=== PATIENT | female | born 1950 | race Caucasian/White ===

== ENCOUNTER 2024-05-05 06:06 | Day surgery (SDC) | payer MEDICARE, OTHER, SELFPAY ==
[2024-04-15 14:17] VITALS: BMI 25.8
[2024-04-15 15:03] LABS: Hemoglobin 12.1 g/dL (12.0-16.0); Mean Corp Hgb Conc. 35.6 g/dL (33.0-37.0); Mean Corpuscular Hgb 29.9 pg (27.0-31.0); Platelet Count 255 10^3/uL (130-400); Red Blood Cell Count 4.05 10^6/uL (4.20-5.40); Red Cell Dist. Width 13.1 % (11.5-14.5); White Blood Cell Count 9.2 10^3/uL (4.8-10.8)
[2024-04-15 15:23] LABS: ALT (SGPT) 18 U/L (0-35); AST (SGOT) 31 U/L (14-36); Alkaline Phosphatase 93 U/L (38-126); Blood Urea Nitrogen 30 mg/dl (7-17); Calcium 10.4 mg/dl (8.4-10.2); Carbon Dioxide 29 mmol/L (22-30); Chloride 91 mmol/L (98-107); Estimated Creatinine Clearance 46 ml/min; Glucose 91 mg/dl (70-99); Potassium 5.2 mmol/L (3.5-5.1); Sodium 133 mmol/L (135-145); Total Bilirubin 0.6 mg/dl (0.2-1.3); Total Protein 7.5 g/dl (6.3-8.2); eGFR > 60.00
[2024-04-16 08:48] LABS: Glycohemoglobin (HgbA1c) 5.4 % (4.0-5.6)
--- NOTE | 2024-04-22 10:26 | VNURNOTE ---
Patient is scheduled for an elective R TKR on 05/05/[address] Campbell- she is a same day patient. Spoke with patient prior to surgery. Introduced role of [facility] liaison.
Patient reports she lives alone with a cat in a 1 story house. [address].
She currently functions independently. She has a cane and rolling walker.
She has never had VN.
PCP is Radha Alejandre
Pharm [facility]
Discussed orthopedic program and post surgical plans.
Reviewed that he will have VN services initially and will then start outpatient PT.
Patient selects VN for home care needs and will then go to [facility] for outpatient PT.
Patient is in agreement with plan and states that friend will be available initially to help post-op
Referral placed in [facility].
Plan: [facility] joint protocol then outpt PT at [facility] M[facility]
[2024-05-05] VITALS (25 sets, daily range): BP systolic 78–212; BP diastolic 47–117; PULSE 83–112; O2SAT 98; BMI 25.8
[2024-05-05] MEDS: TYLENOL 650 MG PO ×3 (06:32→17:01)
[2024-05-05] MEDS: NORMOSOL-R/PLASMALYTE-A 1000 IV (06:45)
--- NOTE | 2024-05-05 08:53 | W.DS.TRANS ---
DC Summary - [employer]
-
Discharge Instructions:
Sleep Apnea Risk Low
Discharge Diagnosis/Procedures s/p Right total knee replacement
Diet No restrictions
Activity With assistance
Driving Restrictions Not until seen by your Dr
Bathing Restrictions OK to Shower
Instructions: Total Knee Replacement (DC)
Stand-Alone Forms:
Changes to Home Medications: No
Discharge Medications:
DC Medications w/original date entered in [employer]
Curcumin 400 mg PO DAILY 04/29/24
[place] 3 560 mg PO DAILY 04/29/24
Probiotic 1,560 mg PO DAILY 04/29/24
cholecalciferol (vitamin D3) 125 mcg (5,000 unit) tablet (Vitamin D3) 125 mcg PO DAILY 04/29/24
coQ10 (ubiquinol) 100 mg capsule 100 mg PO DAILY 04/29/24
cyclobenzaprine 5 mg tablet 5 mg PO HS PRN spasms 04/29/24
losartan 100 mg tablet 100 mg PO DAILY 04/29/24
melatonin 5 mg tablet 5 mg PO DAILY 04/29/24
metoprolol succinate 50 mg tablet,extended release 24 hr 50 mg PO DAILY 04/29/24
mupirocin 2 % topical ointment 1 applic topical BID 04/29/24
red yeast rice 600 mg tablet 1,200 mg PO DAILY 04/29/24
torsemide 5 mg tablet 25 mg PO DAILY 04/29/24
vitamin E 50 mg PO DAILY 04/29/24
Home Medication Changes
Pending Results: No
[2024-05-05] MEDS: CYKLOKAPRON 1300 MG PO ×2 (12:31→20:31)
[2024-05-05] MEDS: ROXICODONE 5 MG PO (15:19)
--- NOTE | 2024-05-05 15:36 | W.PN.UPDATE ---
Update Note
Progress Note Update
The patient was initially intended to go how same-day; however, due to ongoing incisional bleeding and orthostatic hypotension (in setting of baseline liable HTN), will admit overnight.
R knee OA s/p R TKA w/ Dr Robbins 05/05/24
DVT prophylaxis - ASA 81 mg BID on POD 2 (nothing tonight or tomorrow d/t ongoing incisional bleeding) and b/l venous foot pumps
Incisional bleeding - TXA BID and continuous dressing changes prn
- Assess H&H in AM
Orthostatic hypotension w/ baseline liable HTN - monitor orthostatics q8h
- Anti-hypertensives w/ hold BP parameters
- Midodrine
Atrial tachycardia - monitor on tele
- BB w/ hold parameters
Fibromyalgia - monitor pain
Hypercholesterolemia
Mild LVH
DDD
Melanoma, shoulder, s/p surgical removal
SCC
Anxiety
Lyme disease
Prediabetes
Mild hyponatremia and hyperkalemia
[2024-05-05] MEDS: NSS 1000 IV (16:58)
[2024-05-05] MEDS: COZAAR PO (17:00)
[2024-05-05] MEDS: ANCEF 5 IV ×2 (17:00→23:30)
[2024-05-05] MEDS: VITAMIN D3 (cholecalciferol) PO (17:00)
[2024-05-05] MEDS: FLUSH (NSS) 1 FLUSH IV (17:01)
--- NOTE | 2024-05-05 17:16 | W.PN.UPDATE ---
Update Note
Progress Note Update
Patient s/p right TKR. Was scheduled as an outpatient but had orthostatic hypotension and was admitted. VSS in bed. Pulm: nonlabored. CV: regular. RLE: has saturated dressing 3 times. No active bleeders when bandage off. Extra shanna
placed. Able to fully extend. NVI distally. Calf soft. Post op xrays as expected. Will watch BP. Will hold ASA with oozing. Dressing reinforced. Will order additional oral TXA. Plan for discharge home tomorrow if stable.
[2024-05-05] MEDS: TYLENOL PO (20:27)
[2024-05-05] MEDS: ROXICODONE 7.5 MG PO (20:28)
[2024-05-05] MEDS: ZOFRAN 4 MG IV (20:28)
[2024-05-05] MEDS: DECADRON 4 MG PO (20:29)
[2024-05-05] MEDS: SENOKOT 17.2 MG PO (20:30)
[2024-05-05] MEDS: BACTROBAN 2% OINTMENT 1 APPLIC NASAL (20:30)
[2024-05-05] MEDS: COLACE 100 MG PO (20:30)
[2024-05-05] MEDS: MELATONIN 5 MG PO (22:46)
[2024-05-06] MEDS: TYLENOL PO ×3 (00:30→08:19)
[2024-05-06 03:06] VITALS: BP 149/95
[2024-05-06 06:18] LABS: Hematocrit 24.2 % (37.0-47.0); Hemoglobin 8.8 g/dL (12.0-16.0)
[2024-05-06 07:00] VITALS: BP 167/93
--- NOTE | 2024-05-06 07:35 | W.PN.ORTHO ---
Today's Communication / Plan
-
PT and Case management to see
Assessment
.
Distal Motor Intact: Yes
Dressing:
Dressing changed
Assessment:
Admitted for orthostatic hypotension following RTKR. OOB with PT today. Drainage improved with TXA. Plan for discharge home today if BP allows. Patient would like to discuss Home PT/Visistng nurse for 2-3 weeks to start.
Plan
.
Surgery / Date: 05/05/2024 RTKR [place]
DVT Prophylaxis: Aspirin (2 baby aspirin to start on Thursday)
Activity:
Out of bed.
PT/OT
Discharge Plan: Home w/ VN
Discharge Information:
Patient doing well this AM. Discharge home today if BP allows with visiting nurse and home PT
Subjective
.
.:
Patient resting comfortably. Complains of stiffness and a little nausea.
Vital Signs and Labs
.
Vital Signs and Labs:
Lab Results
05/06/24 04:29
04/15/24 14:23
Temp Pulse Resp BP Pulse Ox
98.3 F 90 18 149/95 96
05/06/24 03:06 05/06/24 03:06 05/06/24 03:06 05/06/24 03:06 05/06/24 03:06
Non-invasive Hgb result: 11.5
Physical Exam
-
Pulm: nonlabored
CV: regular
Abd: benign
Ext: RLE: Dressing with contained bloody drainage. Improved. Calf soft. Able to fully extend. NVI distally
[2024-05-06] MEDS: CYKLOKAPRON 1300 MG PO (07:58)
[2024-05-06] MEDS: DEMADEX 25 MG PO (07:58)
[2024-05-06] MEDS: BACTROBAN 2% OINTMENT 1 APPLIC NASAL (07:58)
[2024-05-06 08:00] VITALS: BP 131/87; BP 151/99; BP 167/93; PULSE 105; PULSE 117; PULSE 83
[2024-05-06] MEDS: COLACE 100 MG PO (08:00)
[2024-05-06] MEDS: DECADRON 4 MG PO (08:00)
[2024-05-06] MEDS: TOPROL XL 50 MG PO (08:00)
[2024-05-06] MEDS: COZAAR 100 MG PO (08:00)
[2024-05-06] MEDS: SENOKOT 17.2 MG PO (08:01)
[2024-05-06] MEDS: VITAMIN D3 (cholecalciferol) 125 MCG PO (08:01)
[2024-05-06] MEDS: ROXICODONE 7.5 MG PO (08:18)
--- NOTE | 2024-05-06 09:59 | W.PN.ORTHO ---
Today's Communication / Plan
-
D/c today if remaining clinically stable. Home PT/VN services preferable upon d/c.
Assessment
.
Distal Motor Intact: Yes
Dressing:
Clean, dry and intact after dressing change this AM.
Assessment:
The patient was initially intended to go how same-day; however, due to ongoing incisional bleeding and orthostatic hypotension (in setting of baseline liable HTN), she was admitted overnight.
R knee OA s/p R TKA w/ Dr Robbins 05/05/24
DVT prophylaxis - ASA 81 mg BID starting Thursday, 05/08 (d/t previous incisional bleeding) and b/l venous foot pumps
Incisional bleeding - TXA BID and continuous dressing changes prn
- Additional shanna placed - dressing remaining C/D/I while working w/ PT
Orthostatic hypotension w/ baseline liable HTN - orthostatic VS POD 1 stable w/ pt remaining asymptomatic
- Continue anti-hypertensives w/ hold BP parameters while on Oxycodone
- Midodrine not indicated thankfully
Atrial tachycardia - maintaining NSR on tele
- BB w/ hold parameters
Fibromyalgia - Pain tolerable by POD 1
Hypercholesterolemia
Mild LVH
DDD
Melanoma, shoulder, s/p surgical removal
SCC
Anxiety
Lyme disease
Prediabetes
Mild hyponatremia and hyperkalemia
Plan
.
Surgery / Date: R TKA w/ Dr Robbins 05/05/24
DVT Prophylaxis: Aspirin (81 mg BID starting 05/08)
Activity:
Out of bed.
PT/OT
Discharge Plan: Home w/ VN
Subjective
.
.:
Patient resting comfortably in bed this AM.
BP readings improving overnight w/o need for Midodrine.
Incisional bleeding lessening w/ additional TXA.
Eager for potential d/c today.
Vital Signs and Labs
.
Vital Signs and Labs:
Lab Results
05/06/24 04:29
04/15/24 14:23
Temp Pulse Resp BP Pulse Ox
98.5 F 83 16 167/93 95
05/06/24 07:00 05/06/24 08:00 05/06/24 07:00 05/06/24 08:00 05/06/24 07:00
Non-invasive Hgb result: 11.5
Physical Exam
-
HEENT: No pallor, cyanosis, or jaundice. Throat clear.
NECK: Supple. No JVD.
RESPIRATORY: Lungs clear to auscultation.
CVS: S1, S2 normal. RRR.�
ABDOMEN: Soft, non-tender. No distension.
EXTREMITIES: Expected post-surgical R knee edema. Strength equal, no calf pain with palpation/dorsiflexion. Calves soft.
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 No focal deficits. 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
[2024-05-06 10:19] VITALS: BP 112/75; BP 116/65; BP 150/84; PULSE 105; PULSE 88; O2SAT 96
--- NOTE | 2024-05-06 10:32 | CM ---
CM met with pt a bedside
Pt reports she lives alone in a ranch style home; 3 [address] to enter
Independent, active
DME - single point cane, rolling walker, raised toilet seat, toilet rails, shower rails
SNF/HH - no past hx
Has ride home at d/c
PCP - Radha Alejandre
Pharm - [facility]
Pts friend to stay with her at discharge for a few days per pt
Requesting Home VN/PT - no preference
[facility] Liaison aware
Plan - anticipate home with VNA
--- NOTE | 2024-05-06 10:36 | VNURNOTE ---
Chart reviewed, plan is for patient to be DC today. Met with patient at bedside. She confirms her friend will pick her up and stay with her overnight. Explained [facility] will call her ahead of time and plan to see her at home tomorrow. Brochure with
VN contact info provided. Patient agreeable to plan. Referral accepted in [facility].
--- NOTE | 2024-05-06 10:48 | W.DS.TRANS ---
DC Summary - [place]
-
Discharge Instructions:
Sleep Apnea Risk Low
Discharge Diagnosis/Procedures R knee OA s/p R TKA w/ Dr Robbins 05/05/24
Diet Regular
Activity As tolerated,With Walker
Driving Restrictions Not until seen by your Dr
Bathing Restrictions OK to Shower
Other Services VN,PT
Wound Care Dressing to be removed 1 week post-surgery.
[place] to be removed at 2 week follow-up with
surgeon's office.
Instructions: Total Knee Replacement (DC)
Stand-Alone Forms: Total Hip/Knee Replacement D/C
Changes to Home Medications: Yes
Discharge Medications:
DC Medications w/original date entered in [employer]
Curcumin 400 mg PO DAILY 04/29/24
[place] 3 560 mg PO DAILY 04/29/24
Probiotic 1,560 mg PO DAILY 04/29/24
cholecalciferol (vitamin D3) 125 mcg (5,000 unit) tablet (Vitamin D3) 125 mcg PO DAILY 04/29/24
coQ10 (ubiquinol) 100 mg capsule 100 mg PO DAILY 04/29/24
melatonin 5 mg tablet 5 mg PO DAILY 04/29/24
metoprolol succinate 50 mg tablet,extended release 24 hr 50 mg PO DAILY 04/29/24
mupirocin 2 % topical ointment 1 applic topical BID 04/29/24
red yeast rice 600 mg tablet 1,200 mg PO DAILY 04/29/24
vitamin E 50 mg PO DAILY 04/29/24
mupirocin 2 % topical ointment 1 applic topical BID 2 days #15 grams 05/05/24
acetaminophen 500 mg tablet (Tylenol Extra Strength) 1,000 mg (2 x 500 mg) PO Q6H #60 tabs 05/06/24
aspirin 81 mg chewable tablet 81 mg PO BID #60 tabs 05/06/24
cyclobenzaprine 5 mg tablet 5 mg PO HS PRN spasms #0 tabs 05/06/24
dexamethasone 4 mg tablet 4 mg PO Q12 Anti-inflammatory #7 tabs 05/06/24
docusate sodium 100 mg capsule 100 mg PO BID #30 caps 05/06/24
losartan 100 mg tablet 100 mg PO DAILY #0 tabs 05/06/24
metoprolol succinate 25 mg tablet,extended release 24 hr 25 mg PO QPM 05/06/24
ondansetron HCl 4 mg tablet 4 mg PO Q6H PRN nausea and vomiting #30 tabs 05/06/24
oxycodone 5 mg tablet 5 - 10 mg (1 - 2 x 5 mg) PO Q6H PRN moderate-severe pain #30 tabs 05/06/24
sennosides 8.6 mg tablet (Senna Laxative) 17.2 mg (2 x 8.6 mg) PO BID #30 tabs 05/06/24
torsemide 5 mg tablet 25 mg (5 x 5 mg) PO DAILY #0 tabs 05/06/24
Home Medication Changes
acetaminophen 500 mg tablet (Tylenol Extra Strength) 1,000 mg (2 x 500 mg) PO Q6H #60 tabs 05/06/24
aspirin 81 mg chewable tablet 81 mg PO BID #60 tabs 05/06/24
dexamethasone 4 mg tablet 4 mg PO Q12 Anti-inflammatory #7 tabs 05/06/24
docusate sodium 100 mg capsule 100 mg PO BID #30 caps 05/06/24
ondansetron HCl 4 mg tablet 4 mg PO Q6H PRN nausea and vomiting #30 tabs 05/06/24
oxycodone 5 mg tablet 5 - 10 mg (1 - 2 x 5 mg) PO Q6H PRN moderate-severe pain #30 tabs 05/06/24
sennosides 8.6 mg tablet (Senna Laxative) 17.2 mg (2 x 8.6 mg) PO BID #30 tabs 05/06/24
Pending Results: No
[2024-05-06] MEDS: TYLENOL 650 MG PO (11:43)
[2024-05-06 11:45] VITALS: BP 118/77
== END 2024-05-06 13:20 | disposition home or self-care (01) ==
LOC: SDS 06:06
PROVIDERS: Physician Assistant; ATTENDING PHYSICIAN Orthopaedic Surgery; FAMILY PHYSICIAN Internal Medicine; OTHER PHYSICIAN Internal Medicine Cardiovascular Disease
DX: M17.11 Unilateral primary osteoarthritis, right knee (principal); I10 Essential (primary) hypertension; I95.1 Orthostatic hypotension; I47.19 Other supraventricular tachycardia; L76.22 Postprocedural hemorrhage of skin and subcutaneous tissue following other procedure; Y83.1 Surgical operation with implant of artificial internal device as the cause of abnormal reaction of the patient, or of later complication, without mention of misadventure at the time of the procedure; D62 Acute posthemorrhagic anemia; M79.7 Fibromyalgia
CPT/HCPCS: 27447; 36415; 73560; 80053; 83036; 85014; 85018; 85027; 87070; 97110; 97116; 97162; 97166; 97530; 97535; C1713; C1776

== ENCOUNTER → 2024-07-27 12:54 | Outpatient (REF) | payer MEDICARE, OTHER, SELFPAY | LOC: RCS 12:54 | PROVIDERS: ATTENDING PHYSICIAN Internal Medicine Cardiovascular Disease; FAMILY PHYSICIAN Internal Medicine | DX: I35.1 Nonrheumatic aortic (valve) insufficiency (principal); I34.0 Nonrheumatic mitral (valve) insufficiency; I10 Essential (primary) hypertension; R42 Dizziness and giddiness | CPT/HCPCS: 93306 ==

== ENCOUNTER 2025-02-01 12:41 | Emergency (ER) | payer MEDICARE, OTHER, SELFPAY ==
[2025-02-01] VITALS (10 sets, daily range): BP systolic 164–214; BP diastolic 99–117
[2025-02-01 13:27] LABS: % Basophils 0.4 % (0-2); % Immature Granulocytes 0.1 % (0-0.5); % Lymphocytes 22.8 % (20.5-51.1); % Monocytes 8.5 % (1.7-9.3); % Neutrophils 67.2 % (42.2-75.2); Absolute Eosinophils 0.1 10^3/uL (0-0.7); Absolute Lymphocytes 1.7 10^3/uL (1.2-3.4); Absolute Monocytes 0.6 10^3/uL (0.1-0.6); Absolute Neutrophils 4.9 10^3/uL (1.4-6.5); Hemoglobin 11.7 g/dL (12.0-16.0); Mean Corp Hgb Conc. 35.5 g/dL (33.0-37.0); Mean Corpuscular Hgb 29.9 pg (27.0-31.0); Mean Corpuscular Volume 84.4 fL (81.0-99.0); Mean Platelet Volume 9.5 fL (7.4-10.4); Nucleated Red Blood Cells % 0 %; Platelet Count 256 10^3/uL (130-400); Red Blood Cell Count 3.91 10^6/uL (4.20-5.40); Red Cell Dist. Width 12.9 % (11.5-14.5); White Blood Cell Count 7.3 10^3/uL (4.8-10.8)
[2025-02-01 13:53] LABS: ALT (SGPT) 19 U/L (0-35); AST (SGOT) 24 U/L (14-36); Albumin 4.8 g/dl (3.5-5.0); Alkaline Phosphatase 101 U/L (38-126); Blood Urea Nitrogen 15 mg/dl (7-17); Calcium 9.3 mg/dl (8.4-10.2); Carbon Dioxide 25 mmol/L (22-30); Chloride 98 mmol/L (98-107); Glucose 103 mg/dl (70-99); Potassium 4.5 mmol/L (3.5-5.1); Sodium 128 mmol/L (135-145); Total Bilirubin 0.6 mg/dl (0.2-1.3); Total Protein 7.4 g/dl (6.3-8.2); eGFR > 60.00
[2025-02-01 14:01] LABS: Troponin I < 0.012 ng/ml
--- NOTE | 2025-02-01 17:39 | ED.GENMED ---
History of Present Illness
General
Chief Complaint: Blood Pressure Problem
Source: patient
Exam Limitations: none
Time Seen by Provider: 02/01/25 17:20
Nursing documentation reviewed up to this point in time: agreed with
History of Present Illness
History of Present Illness:
Note:
CHIEF COMPLAINT(S)
Lightheadedness
HISTORY OF PRESENT ILLNESS
The patient is a 74-year-old female with a past medical history of atrial tachycardia and hypertension, presenting with lightheadedness that occurred earlier today. The onset of symptoms was around 11:00 AM during a physical therapy session, leading
her therapist to measure her blood pressure and advise calling her physician. At the Emergency Department, she reports feeling lightheaded but denies any new changes in her usual symptoms. She has a history of a similar episode approximately eight
years ago that required overnight observation in a hospital. She mentions non-specified issues with her sleep recently, which she suspects might contribute to her current condition.
The patient reports taking diltiazem this morning for atrial tachycardia and losartan around noon for hypertension. She recalls being told to divide the doses but does not specify adherence.
CHRONIC MEDICAL CONDITIONS SIGNIFICANTLY AFFECTING CARE
Chronic conditions affecting care: atrial tachycardia, hypertension.
SOCIAL HISTORY
The patient denies current or past smoking, alcohol, or illicit drug use, including marijuana and cocaine. She reports a social history of occasional cigarette smoking when younger but none currently.
PHYSICAL EXAM
- General: No acute distress
- Vital Signs: Blood pressure 214/116 mmHg, afebrile
- Head, Eyes, Ears, Nose, and Throat: Normocephalic, atraumatic; exam otherwise unremarkable
- Cardiovascular: Normal S1 and S2 heart sounds, no extra heart sounds
- Lungs: Clear to auscultation bilaterally, no adventitious sounds noted
- Extremities: No edema, normal peripheral pulses
Nursing notes reviewed and vital signs reviewed.
DIFFERENTIAL DIAGNOSIS
The Differential Diagnosis includes, in no particular order and is not limited to:
- Hypertensive crisis
- Medication side effects
- Orthostatic hypotension
- Cardiac arrhythmia
- Electrolyte imbalance
- Dehydration
- Vasovagal syncope
- Anemia
- Vestibular dysfunction
- Hypoglycemia
CARE-UPDATE
02/01/25 - 20:10
Patient shows improvement in blood pressure and heart rate. Cleared for discharge. Mild chronic hyponatremia noted, requiring follow-up with primary care for re-evaluation. Increased metoprolol dosage to 50 mg nightly from previous 25 mg.
Disposition:
SUMMARY OF ENCOUNTER
The patient, a 74-year-old female with a past medical history of atrial tachycardia and hypertension, was seen in the emergency department due to an episode of lightheadedness that occurred during a physical therapy session. Her blood pressure was
noted to be elevated at 214/116 mmHg. She had experienced a similar episode eight years ago. Recent sleep disturbances and medication timing (diltiazem and losartan taken separately) might have contributed to the current situation. The management
involved evaluating her current condition, monitoring her vital signs, and adjusting her medication regimen. The decision was made to discharge her as her symptoms improved, and her blood pressure and heart rate showed stabilization. A follow-up
with her primary care physician was advised to address mild chronic hyponatremia and reassess hypertension management.
DISPOSITION
The patient was cleared for discharge after stabilization and improvement in her symptoms.
MEDICATION RECONCILIATION
Increased dosage of metoprolol to 50 mg nightly from the previous 25 mg. Diltiazem and losartan were already being taken for atrial tachycardia and hypertension.
MEDICAL DECISION MAKING
1. Number & Complexity of Problems: Chronic conditions affecting care: atrial tachycardia, hypertension. Differential diagnoses considered included hypertensive crisis, medication side effects, electrolyte imbalance, cardiac arrhythmia, and other
causes of lightheadedness.
2. Data Reviewed: Vital signs indicated significantly elevated blood pressure, with improvement noted upon re-evaluation.
3. Risk: Consideration of admission was made due to the complexity and elevated blood pressure. Outpatient management was appropriate following improvement in symptoms and vital signs, with a reliable follow-up plan in place.
PATHOLOGIES TO CONSIDER
- Hypertensive crisis
- Cardiac arrhythmia
- Electrolyte imbalance
Phy Exam
Physical Exam
Physical Exam:
.
Course
Orders/Labs/Results
Orders:
Orders
02/01/25 13:07
Electrocardiogram (*1) Urgent
Reason for Study: Chest Pain
EKG- Treatment ONCE
02/01/25 13:16
Complete Blood Count/With Diff Urgent
Comprehensive Metabolic Panel Urgent
Troponin I Urgent
02/01/25 17:40
IV Insert/Care/Rem.- Treatment PRN
Labetalol HCl [Trandate] 20 mg IV NOW STA
02/01/25 19:18
Labetalol HCl [Trandate] 20 mg IV NOW STA
02/01/25 20:06
Metoprolol Xl [Toprol Xl] 50 mg PO NOW STA
Abnormal Lab Results
02/01/25
13:16
RBC 3.91 L 10^6/uL
(4.20-5.40)
Hgb 11.7 L g/dL
(12.0-16.0)
Hct 33.0 L %
(37.0-47.0)
Sodium 128 L mmol/L
(135-145)
Glucose 103 H mg/dl
(70-99)
02/01/25 13:16
02/01/25 13:16
Vital Signs
Initial and Last Documented VS:
Initial Vital Signs
Temp Pulse Resp BP Pulse Ox
98.3 F 91 16 214/116 98
02/01/25 13:00 02/01/25 13:00 02/01/25 13:00 02/01/25 13:00 02/01/25 13:00
Last Documented Vital Signs
Temp Pulse Resp BP Pulse Ox
98.5 F 105 17 164/99 97
02/01/25 17:00 02/01/25 20:00 02/01/25 20:00 02/01/25 20:00 02/01/25 19:15
*Pulse Oximetry
SaO2: 98
Oxygen Mode of Delivery: Room air
Patient hypoxic: no
*Critical Care Note
Total Time (30-74mins, 75-104mins- exclusive of procedures): 32 (Critical care statement: A total of 32minutes of critical care time was provided for this patient. This includes management of unstable vital signs, evaluation of the patient at
bedside, reviewing the patient's pertinent medical records, discussion with consultants, review of old EKGs and review of)
ED Attending Note
-
Portions of this chart may have been created with voice recognition software.� Occasional wrong word or��sound alike� substitutions may have occurred due to the inherent limitations of voice recognition software.
Discharge Plan
Departure
Patient Disposition: Home (Routine Discharge)
Date of Disposition: 02/01/25
Time of Disposition: 20:07
Patient with high blood pressure during this ER visit?: Yes
Condition: Good
Discharge Problem:
Asymptomatic hypertensive urgency
Instructions: High Blood Pressure (DC), BLOOD PRESSURE
Prescriptions:
No Action
metoprolol succinate 50 mg Tablet Extended Release 24 Hr
50 mg PO DAILY
melatonin 5 mg Tablet
5 mg PO DAILY
cholecalciferol (vitamin D3) [Vitamin D3] 125 mcg (5,000 unit) Tablet
125 mcg PO DAILY
red yeast rice 600 mg Tablet
1,200 mg PO DAILY
coQ10 (ubiquinol) 100 mg Capsule
100 mg PO DAILY
Curcumin
400 mg PO DAILY
[place] 3
560 mg PO DAILY
Probiotic
1,560 mg PO DAILY
vitamin E
50 mg PO DAILY
mupirocin 2 % Ointment
1 applic TOPICAL BID
mupirocin 2 % ointment
1 applic topical BID 2 Days Qty: 15 0RF
metoprolol succinate 25 mg Tablet Extended Release 24 Hr
25 mg PO QPM
docusate sodium 100 mg Capsule
100 mg PO BID Qty: 30 0RF
dexamethasone 4 mg Tablet
4 mg PO Q12 Qty: 7 0RF
Rx Instructions:
Restart night of discharge and continue every 12 hours until finished.
Take with food.
oxycodone 5 mg Tablet
5 - 10 mg PO Q6H PRN (Reason: moderate-severe pain) Qty: 30 0RF
Rx Instructions:
1 tab for moderate pain, 2 if severe.
Dx total joint
sennosides [Senna Laxative] 8.6 mg Tablet
17.2 mg PO BID Qty: 30 0RF
ondansetron HCl 4 mg tablet
4 mg PO Q6H PRN (Reason: nausea and vomiting) Qty: 30 0RF
Rx Instructions:
Prescribed by surgeon's office pre-op.
acetaminophen [Tylenol Extra Strength] 500 mg tablet
1,000 mg PO Q6H Qty: 60 0RF
Rx Instructions:
DO NOT exceed >4000 mg daily.
torsemide 5 mg Tablet
25 mg PO DAILY Qty: 0 0RF
Rx Instructions:
HOLD IF systolic blood pressure <140 while on Oxycodone.
losartan 100 mg Tablet
100 mg PO DAILY Qty: 0 0RF
Rx Instructions:
HOLD IF systolic blood pressure <130 while on Oxycodone.
cyclobenzaprine 5 mg Tablet
5 mg PO HS PRN (Reason: spasms) Qty: 0 0RF
Rx Instructions:
Home medication
aspirin 81 mg tablet,chewable
81 mg PO BID Qty: 60 0RF
Rx Instructions:
Start AM of 05/08/24. Continue twice a day for 4 weeks post-surgery.
Referrals:
Radha Alejandre NP [Family Provider, Internal Medicine] - Call in 1-3 days for appt
Activity Restrictions/Additional Instructions:
Take toprol (metoprolol) 50 mg nightly. follow up with your primary care for blood pressure check in 3-5 days. Return for any concerns.
Interventions
Interventions:
*Risk Screen - Suicide Last Done: 02/01/25 13:00
*General Assessment Last Done: 02/01/25 17:33
*Neglect/Abuse Screening Last Done: 02/01/25 13:00
*ED- Fall Risk Assessment Last Done: 02/01/25 17:33
*ED COVID-19 Vaccine History Last Done: 02/01/25 17:33
ED- Cardiac Assessment Last Done: 02/01/25 17:53
ED- Neurological Assessment Last Done: 02/01/25 17:53
ED- Pulmonary Assessment Last Done: 02/01/25 17:53
Discharge Date and Time
Print Language: SWAZI
[2025-02-01] MEDS: TRANDATE 20 MG IV ×2 (18:08→19:25)
[2025-02-01] MEDS: TOPROL XL 50 MG PO (20:18)
== END 2025-02-01 20:25 | disposition home or self-care (01) ==
LOC: EMR 12:41
PROVIDERS: EMERGENCY PHYSICIAN Emergency Medicine; FAMILY PHYSICIAN Internal Medicine
DX: I16.0 Hypertensive urgency (principal); I47.19 Other supraventricular tachycardia; F17.210 Nicotine dependence, cigarettes, uncomplicated; Z79.899 Other long term (current) drug therapy
CPT/HCPCS: 99283; 96374; 96375; 80053; 84484; 85025; 93005